=== PATIENT | female | born 1980 | race Caucasian/White ===

== ENCOUNTER 2024-09-08 16:13 | Emergency (ER) | payer SELFPAY ==
[~2024-09-08] VITALS: Ht 162.6 cm; Wt 70.5 kg
[2024-09-08 16:15] VITALS: TEMP 97
[2024-09-08 16:31] LABS: COVID AG,FIA SOURCE NASAL SWAB
[2024-09-08 16:36] LABS: PH,URINE DRUG SCREEN 6.0 (5.0-8.0)
[2024-09-08 16:43] LABS: ALCOHOL, URINE DRUG SCREEN NEGATIVE (NEGATIVE); AMPHET/METH SCREEN,URINE NEGATIVE (NEGATIVE); BARBITURATE SCREEN, URINE NEGATIVE (NEGATIVE); CANNABINOID SCREEN,URINE NEGATIVE (NEGATIVE); COCAINE SCREEN,URINE NEGATIVE (NEGATIVE); METHADONE SCREEN, URINE NEGATIVE (NEGATIVE)
[2024-09-08 16:53] LABS: SARS-COV2 (COVID) ANTIGEN,FIA Negative (Negative)
[2024-09-08 18:37] VITALS: BP 0/0; PULSE 70; RESP 16; O2SAT 100
== END 2024-09-08 18:51 ==
LOC: EMS 16:38
DX: F29 Unspecified psychosis not due to a substance or known physiological condition (principal); F31.9 Bipolar disorder, unspecified; Z20.822 Contact with and (suspected) exposure to COVID-19
CPT/HCPCS: 80307; 84703; 99285